=== PATIENT | female | born 1945 | race Caucasian/White ===

== ENCOUNTER → 2017-04-28 | Outpatient (CLI) | payer MEDICARE, OTHER ==
[2014-09-19 08:31] VITALS: BMI 23.4
[~2017-04-28] MED LIST: ALEN70TA43 PO; AMLO-101 PO; AMLO-99 PO; ASPI-757 PO; CALC-635 PO; CALC500T6 PO; FLU30SYR8 IM ONLY; FLU60SYR30 IM ONLY; HYDR-2966 PO; HYDR-318 PO; HYDR12.561 PO; LEVO-3 PO; LEVO125T77 PO; LEVO150T78 PO; LEVO75TA73 PO; LEVO88TA43 PO; LORA-1455 PO; MULT1CAP59 PO; NITR-105 PO; OMEG-11 PO; OXYC-865 PO; PNEI IJ; VIT1CAPS33 PO; ZOLP-360 PO
--- NOTE | 2017-04-29 16:16 | RADIOLOGY IMAGING REPORT ---
FACILITY: [facility] [place] PATIENT NAME: DL ARVIZU : [id number] MR: [id number] V: [id number] EXAM DATE: [id number] ORDERING PHYSICIAN: KERVIN ELDRIDGE TECHNOLOGIST: Alexandria Ham PROCEDURE:BILATERAL DIGITAL SCREENING MAMMOGRAM WITH CAD ASSISTED INTERPRETATION & 3D TOMOSYNTHESIS COMPARISON:Prior mammograms 04/16/16, 04/06/14, 02/24/12 INDICATIONS:PRIOR LEFT LUMPECTOMY AND RADIATION THERAPY. FINDINGS: Scattered fibroglandular tissue noted. The Left breast is asymmetrically smaller when compared to the Right as before. Unchanged calcified post treatment architectural distortion in the Left upper breast. Multiple unchanged bilateral benign microcalcifications. No suspicious mass, microcalcifications or architectural distortion. No change to prior. DIAGNOSTIC CATEGORY 2--BENIGN FINDING. RECOMMENDATIONS: ROUTINE MAMMOGRAM AND CLINICAL EVALUATION. IMPRESSION: BIRADS 2: Benign finding Annual mammographic screening recommended. Dictated by: Sherif Reddy on 04/29/2017 at 9:57 Transcribed by: BIANCA on 04/29/2017 at 10:15 Approved by: Sherif Reddy on 04/29/2017 at 16:14 [facility]
== END ==
LOC: MAMO 01:55
PROVIDERS: ATTEND Internal Medicine
DX: Z12.31 Encounter for screening mammogram for malignant neoplasm of breast (principal); R92.1 Mammographic calcification found on diagnostic imaging of breast
CPT/HCPCS: 77063; 77067

== ENCOUNTER → 2017-05-10 | Outpatient (CLI) | payer MEDICARE, OTHER ==
[2014-09-19 08:31] VITALS: BMI 23.4
== END ==
LOC: LAB 09:31
PROVIDERS: ATTEND Internal Medicine
DX: I10 Essential (primary) hypertension (principal); E03.9 Hypothyroidism, unspecified
CPT/HCPCS: 36415; 82040; 82247; 82310; 82374; 82435; 82565; 82947; 84075; 84132; 84155; 84295; 84443; 84450; 84460; 84520

== ENCOUNTER → 2017-11-11 | Outpatient (CLI) | payer MEDICARE, OTHER ==
[2014-09-19 08:31] VITALS: BMI 23.4
[~2017-11-11] MED LIST changes: +AMLO-113 PO; -AMLO-99 PO
== END ==
LOC: LAB 10:32
PROVIDERS: ATTEND Internal Medicine
DX: E03.9 Hypothyroidism, unspecified (principal); I10 Essential (primary) hypertension
CPT/HCPCS: 36415; 82040; 82247; 82310; 82374; 82435; 82565; 82947; 84075; 84132; 84155; 84295; 84443; 84450; 84460; 84520

== ENCOUNTER → 2018-01-05 | Outpatient (CLI) | payer MEDICARE, OTHER ==
[2014-09-19 08:31] VITALS: BMI 23.4
[~2018-01-05] MED LIST changes: +LEV112 PO
== END ==
LOC: LAB 10:46
PROVIDERS: ATTEND Internal Medicine
DX: E03.9 Hypothyroidism, unspecified (principal)
CPT/HCPCS: 36415; 84443

== ENCOUNTER → 2018-07-19 | Outpatient (CLI) | payer MEDICARE, OTHER ==
[2014-09-19 08:31] VITALS: BMI 23.4
[~2018-07-19] MED LIST changes: -AMLO-113 PO; +AMLO-127 PO; +OCUVITE SOFTGE1 EACH PO; -VIT1CAPS33 PO
[2018-07-19 15:12] LABS: PLATELET COUNT, AUTOMATED 232 K/uL (150-450)
== END ==
LOC: LAB 14:19
PROVIDERS: ATTEND Emergency Medicine
DX: M81.0 Age-related osteoporosis without current pathological fracture (principal); E03.9 Hypothyroidism, unspecified; I10 Essential (primary) hypertension
CPT/HCPCS: 36415; 82040; 82247; 82306; 82310; 82374; 82435; 82465; 82565; 82607; 82947; 83718; 84075; 84132; 84155; 84295; 84443; 84450; 84460; 84478; 84520; 85025